=== PATIENT | female | born 1990 | race African-American/Black ===

== ENCOUNTER 2018-11-25 15:49 | Inpatient (IN) | payer MEDICAID ==
[~2018-11-25] VITALS: Ht 172.7 cm; Wt 72.6 kg
[2018-11-25] MEDS ORDERED: LACTATED RINGERS 1,000 ML IV NR (16:39)
[2018-11-25] MEDS ORDERED: DEXT 5%/LR + PITOCIN 20UNITS/L 1,000 ML IV SCH ×3 (16:39→17:40)
[2018-11-25] MEDS ORDERED: DEXT 5%/LACTATED RINGERS 1,000 ML IV SCH (16:39)
[2018-11-25] MEDS ORDERED: MAGNESIUM 20 G PREMIX (L & D) 500 ML IV SCH (16:39)
[2018-11-25] MEDS ORDERED: LACTATED RINGERS 1,000 ML IV SCH ×3 (16:39→16:44)
[2018-11-25] MEDS ORDERED: BUTORPHANOL TARTRATE 2 MG/ML VIAL IV PRN (16:45)
[2018-11-25] MEDS ORDERED: BETAMETHASONE ACET/BETAMET 30 MG/5 ML VIAL IM SCH (16:45)
[2018-11-25] MEDS ORDERED: CARBOPROST TROMETHAMINE 250 MCG/ML AMPUL IM PRN (16:45)
[2018-11-25] MEDS ORDERED: LIDOCAINE HCL 1% 20ML VIAL (Pyxis) INJ INFIL SCH (16:45)
[2018-11-25] MEDS ORDERED: METHYLERGONOVINE MALEATE 0.2 MG/ML IM PRN ×2 (16:45→17:45)
[2018-11-25] MEDS ORDERED: NALOXONE HCL 0.4 MG/ML 1ML VIAL IM PRN (16:45)
[2018-11-25] MEDS ORDERED: MINERAL OIL 30ML BOTTLE PO NR (16:45)
[2018-11-25] MEDS ORDERED: NALOXONE HCL 0.4 MG/ML 1ML VIAL ONE (16:47)
[2018-11-25] MEDS ORDERED: PENICILLIN G POTASSIUM 5 MMU in DEXT 5% WATER 100 ML IV SCH (17:00)
[2018-11-25 17:27] LABS: BASOPHILS % 0.2 % (0.0-2.0); EOSINOPHILS % 2.4 % (0.0-5.0); HEMATOCRIT. 35.3 % (36.0-48.0); HEMOGLOBIN. 11.5 g/dL (12.0-16.0); LYMPHOCYTES % 10.9 % (20.0-50.0); MEAN CORPUSCULAR HEMOGLOBIN 27.2 pg (28.0-32.0); MEAN CORPUSCULAR VOLUME 83.3 fL (81.0-99.0); MEAN PLATELET VOLUME 9.3 fl (7.4-10.4); MONOCYTES % 7.9 % (2.0-8.0); NEUTROPHILS % 78.6 % (40.0-76.0); PLATELET 187 x1000/uL (130-400); RED BLOOD CELL COUNT 4.24 mill/uL (4.2-5.4); RED CELL DISTRIBUTION WIDTH 14.6 % (11.6-14.6)
[2018-11-25 17:32] LABS: INR 0.9; PARTIAL THROMBOPLASTIN TIME 32.7 sec (23.4-31.0); PROTHROMBIN TIME 9.8 sec (9.6-11.0)
[2018-11-25 17:34] LABS: CHLORIDE 108 mEq/L (98-107)
[2018-11-25 17:36] LABS: CLARITY URINE CLEAR (CLEAR); COLOR URINE YELLOW (YELLOW); KETONES URINE 2+ (NEGATIVE); LEUKOCYTE ESTERASE URINE NEGATIVE (NEGATIVE); NITRITE URINE NEGATIVE (NEGATIVE); OCCULT BLOOD URINE 3+ (NEGATIVE); PH URINE 6.5 (4.5-8.0); PROTEIN URINE NEGATIVE (NEGATIVE); SPECIFIC GRAVITY URINE 1.017 (1.005-1.030); UROBILINOGEN URINE 0.2 E.U./dL (0.2-1.0)
[2018-11-25] MEDS ORDERED: IBUPROFEN 400MG TABLET PO PRN (17:45)
[2018-11-25] MEDS ORDERED: LANOLIN OINT 7GM TUBE TOP PRN (17:45)
[2018-11-25] MEDS ORDERED: DIPHENHYDRAMINE 25MG CAPSULE PO PRN (17:45)
[2018-11-25] MEDS ORDERED: RHO(D) IMMUNE GLOBULIN 300 MCG/SYR IM PRN (17:45)
[2018-11-25 18:00] LABS: HEPATITIS B SURFACE ANTIGEN NEGATIVE
[2018-11-25 18:05] LABS: *BENZODIAZEPINES SCREEN URINE NEGATIVE (NEGATIVE); *COCAINE SCREEN URINE NEGATIVE (NEGATIVE); CANNABINOID URINE SCREEN NEGATIVE (NEGATIVE); METHADONE URINE SCREEN NEGATIVE (NEGATIVE); OPIATES URINE SCREEN NEGATIVE (NEGATIVE); PHENCYCLIDINE URINE SCREEN NEGATIVE (NEGATIVE)
[2018-11-25 18:06] LABS: *AMPHETAMINES SCREEN URINE NEGATIVE (NEGATIVE); *BARBITURATES SCREEN URINE NEGATIVE (NEGATIVE)
[2018-11-25 18:56] VITALS: BP 117/83
[2018-11-25 19:10] VITALS: BP 113/68
[2018-11-25] MEDS: IBUPROFEN 800MG TABLET PO PRN (20:20)
[2018-11-25 20:30] VITALS: BP 118/70
[2018-11-25] MEDS ORDERED: PENICILLIN G POTASSIUM 2.5 MMU in DEXTROSE 5% WATER 50 ML IV SCH (22:00)
[2018-11-26 00:05] VITALS: BP 110/69
[2018-11-26 05:00] VITALS: BP 112/72
[2018-11-26] MEDS: IBUPROFEN 800MG TABLET PO PRN ×2 (05:06→18:24)
[2018-11-26 08:00] VITALS: BP 112/61
[2018-11-26 08:07] LABS: BASOPHILS % 0.1 % (0.0-2.0); EOSINOPHILS % 2.5 % (0.0-5.0); HEMATOCRIT. 29.7 % (36.0-48.0); HEMOGLOBIN. 9.9 g/dL (12.0-16.0); LYMPHOCYTES % 8.5 % (20.0-50.0); MEAN CORPUSCULAR HEMOGLOBIN 27.5 pg (28.0-32.0); MEAN CORPUSCULAR VOLUME 82.5 fL (81.0-99.0); MEAN PLATELET VOLUME 9.1 fl (7.4-10.4); MONOCYTES % 10.4 % (2.0-8.0); NEUTROPHILS % 78.5 % (40.0-76.0); PLATELET 178 x1000/uL (130-400); RED CELL DISTRIBUTION WIDTH 14.2 % (11.6-14.6)
[2018-11-26] MEDS ORDERED: PRENATAL VIT/FE FUMARATE/FA TABLET PO SCH (09:00)
[2018-11-26 16:00] VITALS: BP 105/67
[2018-11-26 22:00] VITALS: BP 108/61
[2018-11-27] MEDS: IBUPROFEN 800MG TABLET PO PRN (04:48)
[2018-11-27 05:25] VITALS: BP 110/68
== END 2018-11-27 13:30 | disposition home or self-care (01) | DRG 560 ==
LOC: OBSVTOIN 15:49 → 8 EST LDRP 15:49 → 8EST 18:00
PROVIDERS: ADMIT Obstetrics & Gynecology; ATTEND Obstetrics & Gynecology
PROC: 10E0XZZ Delivery of Products of Conception, External Approach (ICD-10-PCS; principal; 2018-11-25)
DX: O99.02 Anemia complicating childbirth (principal); D62 Acute posthemorrhagic anemia; Z37.0 Single live birth; Z3A.37 37 weeks gestation of pregnancy
CPT/HCPCS: 36415; 80305; 81003; 86592; 86703; 86762; 86850; 86900; 87340; 99281; J2310; J2540; J2590; J7060